=== PATIENT | female | born 1990 | race Caucasian/White ===

== ENCOUNTER 2018-05-12 06:54 | Emergency (ER) | payer BC ==
[2018-05-12] MEDS ORDERED: Adacel (T-DAP) 0.5 ML VIAL ONE (07:05)
[2018-05-12] MEDS ORDERED: Lidocaine 1% w/Epinephrine 1:100K 20 ML VIAL ONE (07:06)
--- NOTE | 2018-05-12 07:38 | RAD ---
RIGHT FORELEG RADIOGRAPH 2 VIEWS: Date: 05/12/18 PROVIDED CLINICAL HISTORY: Right foreleg pain status post injury. FINDINGS: There is no evidence for fracture or other acute osseous abnormality. No evidence for radiopaque fore ign body. Alignment appears anatomic. Joint spaces appear preserved. IMPRESSION: No evidence for an acute osseous abnormality. If there is persistent clinical concern, conservative m anagement and follow-up imaging advised. POS: BERNY
[2018-05-12] MEDS ORDERED: Bacitracin Zinc 1 Packet ONE (08:19)
== END 2018-05-12 08:32 | disposition home or self-care (01) ==
LOC: SCSER 06:54
DX: S81.811A Laceration without foreign body, right lower leg, initial encounter (principal); N18.9 Chronic kidney disease, unspecified; G43.909 Migraine, unspecified, not intractable, without status migrainosus; Z79.899 Other long term (current) drug therapy; Z23 Encounter for immunization; W22.8XXA Striking against or struck by other objects, initial encounter; Y93.A9 Activity, other involving cardiorespiratory exercise
CPT/HCPCS: 12002; 90471; 90715; J2001

== ENCOUNTER 2020-07-31 12:12 | Inpatient (IN) | payer OTHER ==
[~2020-07-31 12:12] MED LIST: Bupivacaine/Epinephrine 0.25% 30 ML VIAL ONE
[2020-07-31] MEDS ORDERED: Promethazine HCl 25 MG/ML VIAL IM PRN ×2 (12:55→15:25)
[2020-07-31] MEDS ORDERED: Lidocaine 1% (PF) 30 ML VIAL SC PRN (12:55)
[2020-07-31] MEDS ORDERED: Misoprostol 200 MCG TAB PR PRN (12:55)
[2020-07-31] MEDS ORDERED: Butorphanol Tartrate 1 MG/ML VIAL SLOW IVP PRN (12:55)
[2020-07-31] MEDS ORDERED: Ondansetron PF 4 MG/2 ML Vial IVP PRN ×2 (12:55→15:25)
[2020-07-31] MEDS ORDERED: Carboprost 250 MCG/ML AMP IM PRN (12:55)
[2020-07-31] MEDS ORDERED: Ibuprofen 800 MG TAB PO PRN (12:55)
[2020-07-31] MEDS ORDERED: HYDROcodone/Acetaminophen 5/325 mg Tablet PO PRN ×3 (12:55→20:25)
[2020-07-31] MEDS ORDERED: hydrALAZINE 20 MG/ML VIAL SLOW IVP PRN ×2 (12:55→20:25)
[2020-07-31] MEDS ORDERED: NS / Oxytocin 40 units/1000ml 1,000 ML IV PRN (12:55)
[2020-07-31] MEDS ORDERED: Methylergonovine 0.2 MG/ML VIAL IM PRN ×2 (12:55→20:25)
[2020-07-31] MEDS ORDERED: Acetaminophen 500 MG TAB PO PRN (12:55)
[2020-07-31] MEDS ORDERED: Diphenoxylate HCl/Atropine Tablet PO PRN ×2 (12:55)
[2020-07-31] MEDS ORDERED: Lactated Ringer's 1,000 ML IV SCH (13:00)
[2020-07-31 13:05] VITALS: BMI 31.4
[2020-07-31] MEDS ORDERED: FLU VACC QS2020-21(6MOS UP)/PF 60 MCG/0.5 ML SYRINGE IM ONE (13:15)
[2020-07-31] MEDS ORDERED: Fentanyl 4 mcg/Bup 0.1% Cadd 100 ML ONE (13:18)
[2020-07-31 13:35] LABS: Hemoglobin 13.1 g/dL (12.0-16.0); Mean Corpuscular HGB CONC 32.7 g/dL (32.0-36.0); Mean Corpuscular Hemoglobin 31.7 pg (27.0-31.0); Mean Corpuscular Volume 96.7 fL (78.0-98.0); Mean Platelet Volume 9.5 fL (7.4-10.4); Platelet Count 160 thou/uL (130-400); RBC Distribution Width 12.2 % (11.5-14.5); Red Blood Cell (RBC) Count 4.14 mill/uL (4.20-5.40); White Blood Cell (WBC) Count 16.2 thou/uL (4.8-10.8)
[2020-07-31 14:14] LABS: HBSAg Index 0.16 S/CO (0-0.99); Hep B Surf Ag Non-Reactive S/CO (NonReactive)
[2020-07-31 14:15] LABS: Syphilis Antibody Nonreactive (Nonreactive); Syphilis Antibody Index 0.02 S/CO (<1.00 Non-Reactive)
[2020-07-31] MEDS ORDERED: Acetaminophen 325 MG TAB PO PRN (15:25)
[2020-07-31] MEDS ORDERED: EPHEDRINE 25 MG/5 ML SYRINGE SLOW IVP PRN (15:25)
[2020-07-31] MEDS ORDERED: diphenhydrAMINE 50 MG/ML VIAL IVP PRN (15:25)
[2020-07-31] MEDS ORDERED: Naloxone HCl 0.4 mg/ml Vial IVP PRN ×2 (15:25)
[2020-07-31] MEDS ORDERED: Lactated Ringer's 500 ML IV PRN (15:25)
[2020-07-31] MEDS ORDERED: Communication Order-Pharmacy FS SCH (15:30)
[2020-07-31] MEDS ORDERED: Fentanyl 4 mcg/Bupivacaine 0.1% Cassette 100 ML EPIDURAL SCH (15:30)
--- NOTE | 2020-07-31 20:07 | PDOC.LDHP ---
Labor and Delivery H&P Chief complaint: loss of fluid (with contractions) HPI: Pt reports sudden loss of fluid at 1030 ths morning. She has been having her stomach get tight but not painfully. She came to office at [facility], grossly ruptured, and was sent to [facility]. she affirms movement. Current gestational age (weeks): 39 Due date: 08/04/20 Dating criteria: last menstrual period Grav: 2 Para: 1 OB History Details: 2011 8.6 Current medications: pre-latha vitamins Allergies/Adverse Reactions: Allergies Allergy/AdvReac Type Severity Reaction Status Date / Time cortisone Allergy Unknown Verified 07/31/20 13:06 - Physical Exam Vital signs reviewed and normal: yes General: breathing through contractions Lungs: CTAB Abdomen: gravid FHT: category 1 - Vaginal Exam cm dilated: 4 Effacement: 75% Station: -2 - OB Labs Blood type: AB RH: positive Antibody Screen: negative HIV: negative RPR: negative HEPSAg: negative 1 hour GCT: negative GBS: negative Urine drug screen: negative Rubella: immune - Assessment L&D Assessment: term rupture in membranes - Plan Plan: admit to L&D, anesthesia consult for pain management
--- NOTE | 2020-07-31 20:08 | PDOC.OPDEL ---
OB Operative/Delivery Note Delivery Dr/Surgeon: Light Pre-Delivery Diagnosis: active labor Procedure/Post Delivery Dx: spontaneous vaginal delivery Weeks gestation: 39 Anesthesia: epidural - Findings A Sex: female - 1 min: 8 - 5 min: 9 - Additional Findings/Plan Placenta delivered: spontaneous Repaired Obstetrical Laceration: 1st degree Estimated blood loss: 150mL see RN note for QBL Post delivery plan: routine recovery
[2020-07-31] MEDS ORDERED: Benzocaine-Menthol 82.5 ML CAN TOP PRN (20:25)
[2020-07-31] MEDS ORDERED: NS / Oxytocin 40 units/1000ml 1,000 ML IV SCH (20:25)
[2020-07-31] MEDS ORDERED: Milk Of Magnesia 30 ML UDCUP PO PRN (20:25)
[2020-07-31] MEDS ORDERED: Bisacodyl 10 MG SUPP PR PRN (20:25)
[2020-07-31] MEDS ORDERED: Misoprostol 200 MCG TAB VAG PRN (20:25)
[2020-07-31] MEDS ORDERED: Lanolin Ointment 7 GM TUBE TOP PRN (20:25)
[2020-07-31] MEDS: Ibuprofen 800 MG TAB PO SCH (22:00)
[2020-07-31] MEDS: Docusate Calcium (SURFAK) 240 MG CAP PO SCH (22:00)
[2020-08-01] MEDS: Ibuprofen 800 MG TAB PO SCH ×2 (05:45→13:47)
[2020-08-01] MEDS: Ferrous Sulfate 325 MG TAB PO SCH ×2 (08:38→17:05)
[2020-08-01] MEDS: HYDROcodone/Acetaminophen 5/325 mg Tablet PO PRN ×2 (08:46→16:02)
[2020-08-01] MEDS: Docusate Calcium (SURFAK) 240 MG CAP PO SCH (08:46)
[2020-08-01] MEDS ORDERED: Prenatal Vitamin 1 TAB PO SCH (09:00)
[2020-08-01] MEDS ORDERED: Adacel (T-DAP) 0.5 ML SYRINGE IM ONE (09:00)
[2020-08-01 12:08] LABS: SARS-CoV-2 MS2 Positive; SARS-CoV-2 N Gene Negative; SARS-CoV-2 S Gene Negative; SARS-CoV-2 by NAA Not Detected (NotDetected); SARS-CoV-2 orf1ab Negative
[2020-08-01 16:51] VITALS: BP 123/77; TEMP 98
== END 2020-08-01 18:55 | disposition home or self-care (01) | DRG 807 ==
LOC: L&D 12:12 → L&D-LIB 13:25 → 3SW 21:51
PROVIDERS: ADMIT Student in an Organized Health Care Education/Training Program; ATTEND Student in an Organized Health Care Education/Training Program
PROC: 10E0XZZ Delivery of Products of Conception, External Approach (ICD-10-PCS; principal; 2020-07-31)
PROC: 0HQ9XZZ Repair Perineum Skin, External Approach (ICD-10-PCS; 2020-07-31)
DX: O70.0 First degree perineal laceration during delivery (principal); Z37.0 Single live birth; Z20.828 Contact with and (suspected) exposure to other viral communicable diseases; Z3A.39 39 weeks gestation of pregnancy
CPT/HCPCS: 36415; 51702; 85027; 86780; 86850; 86900; 86901; 87340; 87635; U0003